=== PATIENT | male | born 2005 | race Caucasian/White ===

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

== ENCOUNTER 2023-03-25 13:16 | Emergency (ER) | payer BC, SELFPAY ==
--- NOTE | ~2023-03-25 | XR_ITS ---
EXAMINATION: XR chest 2V DATE: 03/25/2023 14:19 INDICATION: Cough and fever TECHNIQUE: PA and lateral views of the chest are obtained. COMPARISON: None available FINDINGS: The lungs are free of acute opacities. No pleural effusion or pneumothorax. The cardiomedia stinal silhouette is normal. The visualized bones and soft tissues are unremarkable. IMPRESSION: 1. No acute cardiopulmonary abnormality. Reviewed, dictated and finalized at location A.
[2023-03-25 13:39] VITALS: BP 111/75; PULSE 92; RESP 20; TEMP 37.1; O2SAT 100
--- NOTE | 2023-03-25 14:02 | ED.GENADULT ---
HPI - General Adult General Chief complaint: Upper Respiratory Infection Stated complaint: bodyache,disoriented,cough,headache Time Seen by Provider: 03/25/23 13:55 Source: patient, RN notes reviewed and old records reviewed Mode of arrival: ambulatory Limitations: no limitations History of Present Illness HPI narrative: 18 year old male presents to [facility] with complaints being ill for the past 4 days with symptoms which include chills, sore throat, headache, body aches, minimal cough noted. Patient reports that he is unsure if he has had a fever but reports general malaise. Patient reports that he has taken a 24 hour allergy relief tablet today, has not taken any other medication. Patient reports that he has been eating and drinking normally denies any nausea or vomiting or diarrhea. Patient is concerned about how bad he feels today states he has finals next week. MD complaint: sore throat chills,headache, and body aches. Onset (ago): day(s) (4) Severity scale (1-10): 5 Treatments prior to arrival: other (allergy medication) Related Data Allergies Allergy/AdvReac Type Severity Reaction Status Date / Time No Known Allergies Allergy Verified 03/25/23 13:35 Review of Systems Review of Systems: CONSTITUTIONAL: Reports malaise, chills, sweats, unknown if fever. EYES: Denies visual changes, redness, or discharge. ENT: Reports rhinorrhea, congestion, sinus pain,no otalgia positive for sore throat. CARDIOVASCULAR: Denies chest pain, palpitations, or edema. RESPIRATORY: Reports minimal cough.? Denies dyspnea. GASTROINTESTINAL: Denies abdominal pain, nausea, vomiting, diarrhea SKIN: Denies rash or itching. MUSCULOSKELETAL: Reports myalgia. NEUROLOGIC: Reports headache. All systems reviewed & are unremarkable except as noted in HPI and below PMFSH Social History Social History (Updated 03/25/23 @ 15:27 by Kayla Weiss NP) Smoking status: Current every day smoker Tobacco type: e-cigarettes/vaping Substance use type: does not use Occupation/Education: student Gender identity (if verbalized by the patient): Male Comments At time of signature, agree with nursing past medical, surgical, social and family history. There is no relevant family history pertinent to the presenting complaint Exam Narrative: GENERAL: Well-appearing, well-nourished, and in no acute distress. HEAD: Normocephalic EYES: PERRLA, conjunctivae clear ENT: Nares clear, turbinates edematous and erythematous, clear discharge. Mucous membranes moist. TM pearly browning with dull light reflex bilaterally; no tragal tenderness. Oropharynx erythematous without lesions. Tonsils red enlarged and without exudate, no drooling, no hoarseness, no trismus, uvula midline. some post nasal discharge NECK: Supple. lymphadenopathy CHEST: Clear to auscultation, breath sounds equal. No wheezing, rhonchi, rales, or stridor. No respiratory distress, speaks in full sentences. cough noted SAO2 100% on room air HEART: Regular rate and rhythm. No murmur heard. SKIN: Warm, dry, no rash. NEURO: Alert and oriented x3. PSYCH: Normal mood and affect Course Course Emergency Course: Patient is aware of diagnosis, understands and agrees to treatment plan.? Anticipatory guidance given.? Patient agrees to follow-up as directed and is aware of reasons to seek care at the emergency department. Portions of this record may have been created with voice recognition software Level of Care: Express Care Visit Vital Signs Vital signs: Vital Signs Oxygen Delivery Room Air 03/25/23 13:36 Temperature 37.1 C 03/25/23 13:39 Pulse Rate 92 03/25/23 13:39 Respiratory Rate 20 03/25/23 13:39 Blood Pressure 111/75 03/25/23 13:39 Pulse Oximetry 100 03/25/23 13:39 Oxygen Delivery Room Air 03/25/23 13:36 Reviewed Medical Decision Making Differential Diagnosis Differential Diagnosis: URI, tonsillitis, viral infection, p
== END 2023-03-25 14:52 | disposition home or self-care (01) ==
PROVIDERS: Emergency Provider Registered Nurse
DX: J03.90 Acute tonsillitis, unspecified (principal); J06.9 Acute upper respiratory infection, unspecified; Z20.822 Contact with and (suspected) exposure to COVID-19; F17.290 Nicotine dependence, other tobacco product, uncomplicated
CPT/HCPCS: 36416; 71046; 86308; 87081; 87426; 87804; 87880; 99213; C9803; G0463

== ENCOUNTER 2024-03-04 21:33 | Emergency (ER) | payer BC, SELFPAY ==
--- NOTE | ~2024-03-04 | XR_ITS ---
EXAM: XR knee LT min 4V DATE: 03/04/2024 22:02 HISTORY: VOLLEYBALL INJ DISLOCATED AND RELOCATED HX OF DISLOCATION . COMPARISON: None available. FINDINGS: Normal mineralization. No acute fracture or dislocation. Notch-like cortical defect along the medial patellar facet. Insall Salvati ratio of 1.4. No lytic or blastic lesion. Joint spaces are maintained. No erosion or periosteal change. Moderate volume joint fluid. IMPRESSION: Notch-like cortical defect along the medial patellar facet, may represent acute or chroni c deformity. Patella fernando. Moderate joint effusion. Reviewed, dictated and finalized at location K. IMPRESSION: Notch-like cortical defect along the medial patellar facet, may rep resent acute or chronic deformity. Patella fernando. Moderate joint effusion.
[2024-03-04 21:33] VITALS: BP 125/80; PULSE 74; RESP 14; TEMP 36.8; O2SAT 100
[2024-03-04] MEDS: KETOROLAC 30 MG/ML VIAL (*BKC) IV PUSH (22:58)
--- NOTE | 2024-03-04 23:05 | ED.LOWEXIN ---
HPI - Extremity Injury (Lower) General Chief Complaint: Extremity Injury, Lower Stated Complaint: POSSIBLE KNEE DISLOCATION Time Seen by Provider: 03/04/24 22:16 Source: patient Mode of arrival: EMS Limitations: no limitations History of Present Illness HPI Narrative: Patient is a 19-year-old male who presents the ED via EMS with report of left knee pain. Patient reports he was playing volleyball earlier tonight and turned/pivoted on his left leg when he felt sudden pain in his L knee. Noted deformity to his patella at that time. Fell to the ground, unable to ambulate. EMS was called. When placing patient on the EMS stretcher, his patella was relocated. Patient has history of previous patellar dislocation states this felt similar. He complains of pain and swelling to his left knee currently. Denies any numbness or tingling. Denies any other injuries. Related Data Allergies Allergy/AdvReac Type Severity Reaction Status Date / Time No Known Allergies Allergy Verified 03/25/23 13:35 Review of Systems Review of Systems: CONSTITUTIONAL: Denies fever, chills, or sweats. MUSCULOSKELETAL: See HPI. NEUROLOGIC: Denies headache, dizziness, numbness, or weakness. All systems reviewed & are unremarkable except as noted in HPI and below PMFSH Social History Social History Smoking status: Current every day smoker Tobacco type: e-cigarettes/vaping Substance use type: does not use Occupation/Education: student Gender identity (if verbalized by the patient): Male Exam Narrative: GENERAL: Well appearing, well-nourished, non-toxic, in no acute distress. HEAD: Normocephalic, atraumatic. RESPIRATORY: Airway patent, respirations nonlabored. CARDIOVASCULAR: Regular rate and rhythm without murmurs, rubs, or gallops. Pedal pulses 2+. MUSCULOSKELETAL: Moves all extremities. Limited flexion range of motion of knee due to pain. Moderate swelling noted to left anterior, palpable joint effusion. Tenderness along medial joint spaces. Sensation intact. Capillary refill <2seconds. SKIN: Warm, dry, normal color. NEURO: A&O X3. Speech clear. PSYCHIATRIC: Appropriate mood and affect. Normal interaction. Course Vital Signs Vital signs: Vital Signs Temperature 98.2 F 03/04/24 21:33 Pulse Rate 74 03/04/24 21:33 Respiratory Rate 14 03/04/24 21:33 Blood Pressure 125/80 03/04/24 21:33 Pulse Oximetry 100 03/04/24 21:33 Oxygen Delivery Room Air 03/04/24 21:33 Temperature 98.2 F 03/04/24 21:33 Pulse Rate 74 03/04/24 21:33 Respiratory Rate 14 03/04/24 21:33 Blood Pressure 125/80 03/04/24 21:33 Pulse Oximetry 100 03/04/24 21:33 Oxygen Delivery Room Air 03/04/24 21:33 MDM - Extremity Injury (Lower) MDM Narrative Medical decision making narrative: Patient presented to ED with likely patellar dislocation, reduced by the time of my evaluation, reporting persistent pain and swelling to left knee. History of similar patellar dislocation in the past. No other injuries. No evidence of compartment syndrome or neurovascular compromise on exam. X-ray of left knee shows moderate joint effusion, patella fernando, possible cortical defect to medial patella. Patient placed in knee immobilizer. Will be given crutches, advised WBAT. Advised follow closely with Orthopedics for further evaluation, discussed rice therapy, will prescribe short course of pain medication for home use. Patient given strict return precautions. Discharged in stable condition. Medical Records Attestation: I reviewed the patient's medical records. Imaging Data Attestation: I personally reviewed and interpreted this imaging study as follows: Radiologist's impression: ITS Impressions Knee X-Ray 03/04/24 22:08 IMPRESSION: Notch-like cortical defect along the medial patellar facet, may represent acute or chronic deformity. Patella fernando. Moderate joint effusion.
== END 2024-03-04 23:16 | disposition home or self-care (01) ==
PROVIDERS: Emergency Provider Physician Assistant
DX: S83.015A Lateral dislocation of left patella, initial encounter (principal); M25.462 Effusion, left knee; F17.290 Nicotine dependence, other tobacco product, uncomplicated; X50.0XXA Overexertion from strenuous movement or load, initial encounter
CPT/HCPCS: 73564; 96374; 99284; J1885

== ENCOUNTER 2024-03-12 10:42 | Outpatient (CLI) | payer BC, SELFPAY ==
--- NOTE | ~2024-03-12 | MR_ITS ---
MRI of the left knee Clinical history: Patellar dislocation Technique: Coronal proton density and proton density-weighted images, sagittal proton-density and T2 fat-sat images, and axial proton-density fat-saturated images were acquired. Findings: Anterior and posterior cruciate ligaments are intact. Medial collateral ligament and the la teral collateral ligament complex are intact. Popliteus tendon is intact. Medial and lateral menisci are intact, without evidence of tear. There is minimally displaced fracture of the medial pole the patella with associated prominent marrow edema at the medial patellar pole. There is additional bone contusion of the lateral femoral condyle laterally. There is high-grade partial tearing at the patellar insertion of the medial patellar reti naculum. Articular cartilage is well preserved throughout the knee. Possible focal chondral defect at the far medial patellar facet. Quadriceps tendon and patellar tendon are intact. Small to moderate joint effusion present. There is prominent soft tissue edema about the knee. Impression: Minimally displaced fracture the medial pole of the patella with associated bone contusions of the me dial patella and lateral femoral condyle, compatible with sequelae of recent lateral patellar disloca tion-relocation injury. Associated high-grade partial tearing of the patellar insertion of the medial patellar retinaculum. Questionable focal chondral defect of the far medial patellar facet. Small to moderate joint effusion. Reviewed, dictated and finalized at location M. Impression: Minimally displaced fracture the medial pole of the patella with associated bon e contusions of the medial patella and lateral femoral condyle, compatible with sequelae of recent lateral patellar dislocation-relocation injury. Associated high-grade partial tearing of the patellar insertion of the medial p atellar retinaculum. Questionable focal chondral defect of the far medial patellar facet. Small to moderate joint effusion.
== END 2024-03-12 10:43 ==
PROVIDERS: PCP Orthopaedic Surgery; Visit Provider Orthopaedic Surgery
DX: S82.022A Displaced longitudinal fracture of left patella, initial encounter for closed fracture (principal); S86.812A Strain of other muscle(s) and tendon(s) at lower leg level, left leg, initial encounter; M25.462 Effusion, left knee; X58.XXXA Exposure to other specified factors, initial encounter
CPT/HCPCS: 73721

== ENCOUNTER 2024-06-18 14:45 | Outpatient (RCR) | payer BC, SELFPAY ==
--- NOTE | 2024-03-20 15:52 | OPREHPOC ---
Outpatient Therapy Plan of Care This is a Multidisciplinary Plan of Care that may contain components documented by all disciplines (PT, OT, and ST.) PT Problem 1 PT Problem #1 Knowledge Deficit PT Goal 1 Goal Pt to be IND with issued HEP Target Visit 8 PT Problem 2 PT Problem #2 Pain PT Goal 1 Goal Pt to report knee pain no greater than 3/10 in the last week. Target Visit 8 PT Goal 2 Goal Pt to report 75% improvement in overall symptoms. Target Visit 8 PT Problem 3 PT Problem #3 Impaired Range of Motion PT Goal 1 Goal Pt to improve active knee flexion to 120 deg without an increase in pain. Target Visit 8 PT Goal 2 Goal Pt to demonstrate full knee extension in short sitting. Target Visit 8 PT Problem 4 PT Problem #4 Impaired Strength PT Goal 1 Goal Pt to demonstrate a functional squat without deviations. Target Visit 8 PT Goal 2 Goal Pt to lift and carry 20lb from ground level. Target Visit 8 PT Problem 5 PT Problem #5 Impaired Functional Mobil PT Goal 1 Goal Pt to ambulate without device and without deviations. Target Visit 8 PT Goal 2 Goal Pt to demonstrate forward and backward jogging without pain. Target Visit 8
--- NOTE | 2024-03-20 15:52 | PTOPEVAL1 ---
Assessment and note entered by Eduin Gonzalez, PT, DPT Evaluation Information Assessment Status Evaluation Diagnosis L patellar dislocation Onset 03/04/24 Subjective Information Pt states he was playing volleyball and went to dive for a ball and pivoted with a planted leg, causing a L patellar dislocation. He has dislocated his knee 1 other time, about 2 years ago. Since the injury, he has been NWB with a knee immobilizer. Since yesterday he has had a brace for stability and has been WBAT. He states the knee feels loose . Reported Pain Level Pain Score 4: Self Report Assessment PT Clinical Summary Sage presents to therapy today for his initial evaluation following a L patella dislocation on 03/04/24. Today he demonstrates significant ROM deficits, persistent swelling, decreased quad engagement, gait deviations, and decreased functional mobility throughout, when compared to his baseline. Pt was issued an HEP this date to progress his active knee ROM and quad activation. Skilled therapy services are indicated to address the deficits noted above, to improve knee stability, and to return to PLOF. Plan of Care Interventions Electrical Stimulation,Gait Training,Hot Pack/Cold Pack,Intermittent Compression,Manual Therapy, Neuro Re-education,Patient/Caregiver Educati, Therapeutic Activities,Therapeutic Exercise PT Services Indicated Yes Treatment Frequency and 2x/wk for 8 visits Duration These treatments will address the objective and functional deficits as defined above. The patient will be advanced safely and appropriately in order for the patient to progress towards his/her prior level of function. Additional exercises will be introduced and as well as a comprehensive home exercise program upon discharge, if needed, ?to ensure carryover of functional gains achieved in the clinic. This treatment plan has been reviewed and agreement upon by the patient.
--- NOTE | 2024-04-19 15:28 | OPREHPOC ---
Outpatient Therapy Plan of Care This is a Multidisciplinary Plan of Care that may contain components documented by all disciplines (PT, OT, and ST.) PT Problem 1 PT Problem #1 Knowledge Deficit PT Goal 1 Goal Pt to be IND with issued HEP Target Visit 8 Progress Met PT Problem 2 PT Problem #2 Pain PT Goal 1 Goal Pt to report knee pain no greater than 3/10 in the last week. Target Visit 8 Progress Met PT Goal 2 Goal Pt to report 75% improvement in overall symptoms. Target Visit 8 Progress Met PT Problem 3 PT Problem #3 Impaired Range of Motion PT Goal 1 Goal Pt to improve active knee flexion to 120 deg without an increase in pain. Target Visit 8 Progress Met PT Goal 2 Goal Pt to demonstrate full knee extension in short sitting. Target Visit 8 Progress Met PT Problem 4 PT Problem #4 Impaired Strength PT Goal 1 Goal Pt to demonstrate a functional squat without deviations. Target Visit 8 Progress Met PT Goal 2 Goal Pt to lift and carry 20lb from ground level. Target Visit 8 Progress Met PT Problem 5 PT Problem #5 Impaired Functional Mobil PT Goal 1 Goal Pt to ambulate without device and without deviations. Target Visit 16 Progress Partially Met PT Goal 2 Goal Pt to demonstrate forward and backward jogging without pain. Target Visit 16 Progress Partially Met Comment Emphasize moving forward
--- NOTE | 2024-04-19 15:28 | PTOPPROG ---
Assessment and note entered by Jamie Barker, PT Evaluation Information Assessment Status Progress Diagnosis L patellar dislocation Onset 03/04/24 Subjective Information Reports that he has had some trouble sleeping with the knee brace on at night at this time. Overall his strength has been improving and he is more confident with walking. Follows up with MD on . Feels he is about 80% better at this point. He has still been dependent on his knee brace for stability and protection. He has tried squatting but is yet to try jumping or running. Assessment PT Clinical Summary Patient has made substantial progress in nee swelling, pain, strength, and ROM at this point in therapy. He has still been very guarded and using support brace outside of therapy. At this point I feel he would be appropriate for progress to plyometric activity if confirmed by physician to begin. Will need continued guidance to ensure proper knee stability and tracking as he progresses. Plan of Care Interventions Electrical Stimulation,Gait Training,Hot Pack/Cold Pack,Intermittent Compression,Manual Therapy, Neuro Re-education,Patient/Caregiver Education, Therapeutic Activities,Therapeutic Exercise PT Services Indicated Yes Treatment Frequency and 2x/wk for 8 visits Duration These treatments will address the objective and functional deficits as defined above. The patient will be advanced safely and appropriately in order for the patient to progress towards his/her prior level of function. Additional exercises will be introduced and as well as a comprehensive home exercise program upon discharge, if needed, ?to ensure carryover of functional gains achieved in the clinic. This treatment plan has been reviewed and agreement upon by the patient.
--- NOTE | 2024-04-26 11:18 | PCPTNOTE ---
Pt. cancelled due to leaving town early.
--- NOTE | 2024-05-10 08:39 | PCPTNOTE ---
Patient called to cancel stating he woke up late.
--- NOTE | 2024-05-15 12:02 | PCPTNOTE ---
Patient no showed to appointment this date. Called and left voicemail.
--- NOTE | 2024-05-21 14:28 | OPREHPOC ---
Outpatient Therapy Plan of Care This is a Multidisciplinary Plan of Care that may contain components documented by all disciplines (PT, OT, and ST.) PT Problem 1 PT Problem #1 Knowledge Deficit PT Goal 1 Goal Pt to be IND with issued HEP Target Visit 8 Progress Met PT Problem 2 PT Problem #2 Pain PT Goal 1 Goal Pt to report knee pain no greater than 3/10 in the last week. Target Visit 8 Progress Met PT Goal 2 Goal Pt to report 75% improvement in overall symptoms. Target Visit 8 Progress Met PT Problem 3 PT Problem #3 Impaired Range of Motion PT Goal 1 Goal Pt to improve active knee flexion to 120 deg without an increase in pain. Target Visit 8 Progress Met PT Goal 2 Goal Pt to demonstrate full knee extension in short sitting. Target Visit 8 Progress Met PT Problem 4 PT Problem #4 Impaired Strength PT Goal 1 Goal Pt to demonstrate a functional squat without deviations. Target Visit 8 Progress Met PT Goal 2 Goal Pt to lift and carry 20lb from ground level. NEW GOAL 05/21/24 Bilateral hip strength 5/5 for single limb activities Target Visit 8 Progress Met PT Problem 5 PT Problem #5 Impaired Functional Mobil PT Goal 1 Goal Pt to ambulate without device and without deviations. Target Visit 24 Progress Partially Met PT Goal 2 Goal Pt to demonstrate forward and backward jogging without pain. Target Visit 24 Progress Partially Met Comment Emphasize moving forward
--- NOTE | 2024-05-21 14:29 | PTOPPROG ---
Assessment and note entered by Deja Aiken DPT Evaluation Information Assessment Status Progress Diagnosis L patellar dislocation Onset 03/04/24 Subjective Information Pt reports highest pain 4/10 and lowest 0/10 in the last week, pain after being on his feet during a shift at work. Returns to MD 07/06/24. Has returned to work and is doing all typical ADL's. Has attempted light running but not to his typical level. Assessment PT Clinical Summary The patient has continued to make good progress in therapy. He reports overall decreased pain to 4/ 10 worst after prolonged standing at work. He demonstrates full and equal range of motion and minimal gait impairments at this time. He continues to have some quad weakness and pain, bilateral hip weakness, and mild balance impairments. He will benefit from further therapy to address these impairments in order to reduce pain and restore full function at work. Plan of Care Interventions Gait Training,Manual Therapy,Neuro Re-education, Patient/Caregiver Education,Therapeutic Activities, Therapeutic Exercise PT Services Indicated Yes Treatment Frequency and 2 times a week for 8 visits Duration These treatments will address the objective and functional deficits as defined above. The patient will be advanced safely and appropriately in order for the patient to progress towards his/her prior level of function. Additional exercises will be introduced and as well as a comprehensive home exercise program upon discharge, if needed, ?to ensure carryover of functional gains achieved in the clinic. This treatment plan has been reviewed and agreement upon by the patient.
--- NOTE | 2024-05-29 09:18 | PCPTNOTE ---
Patient no showed to appointment this date. Called and spoke with patient who states he is out of town helping a friend move.
--- NOTE | 2024-06-13 15:18 | PCPTNOTE ---
Patient called to cancel this date due to conflicting schedule with work.
== END 2024-06-18 23:59 | disposition home or self-care (01) ==
LOC: ANHGOSHPT 14:45
PROVIDERS: PCP Orthopaedic Surgery; Visit Provider Orthopaedic Surgery
DX: S83.005D Unspecified dislocation of left patella, subsequent encounter (principal); M23.90 Unspecified internal derangement of unspecified knee
CPT/HCPCS: 97016; 97110; 97112; 97161; 97530

== ENCOUNTER 2024-06-21 08:47 | Outpatient (RCR) | payer BC, SELFPAY ==
--- NOTE | 2024-06-20 11:25 | PTOPDC ---
Assessment and note entered by dEuin Gonzalez, PT, DPT Evaluation Information Assessment Status Discharge Diagnosis L patellar dislocation Onset 03/04/24 Subjective Information Pt states things are going really well. He states he is really happy with his progress and is excited to get back to his PLOF. He states he played volleyball on monday without any complaints . Reported Pain Level Pain Score 0: Self Report Pain Score 0: Self Report Additional Pain Score Comments Pain will increase to 8/10 at its worst with activity. Assessment PT Clinical Summary Pt reports >90% return to PLOF. He demonstrates improved strength, ROM, and stability. He has met all of his therapy goals and no longer requires skilled services, he will be discharged at this time. Plan of Care PT Services Indicated No
== END 2024-06-21 08:49 | disposition home or self-care (01) ==
LOC: ANHGOSHPT 08:47
PROVIDERS: PCP Orthopaedic Surgery; Visit Provider Orthopaedic Surgery
DX: S83.005D Unspecified dislocation of left patella, subsequent encounter (principal); M23.90 Unspecified internal derangement of unspecified knee
CPT/HCPCS: 97110; 97530